=== PATIENT | male | born 1955 | race Caucasian/White ===

== ENCOUNTER → 2018-06-01 15:32 | Outpatient (CLI) | payer OTHER, SELFPAY ==
--- NOTE | 2018-06-01 15:34 | DI.RAD.S_ITS ---
PROCEDURE: XR KNEE RT 3V INDICATIONS: posterior r knee pain TECHNIQUE: 3 views of the knee were acquired. COMPARISON: None. FINDINGS: Bones: No fractures or dislocations. No suspicious bony lesions. There is a slight degree of thinning of the medial compartment joint width, and no effusion or loose body is seen. No trauma found. Soft tissues: No joint effusion. No suspicious soft tissue calcifications. IMPRESSION: Mild degenerative medial compartment osteoarthritis. Dictated by: Raúl Chambers M.D. on 06/01/2018 at 16:03 Approved by: Raúl Chambers M.D. on 06/01/2018 at 16:03
== END ==
PROVIDERS: PCP Student in an Organized Health Care Education/Training Program; Visit Provider Physician Assistant
DX: M25.561 Pain in right knee (principal); M17.11 Unilateral primary osteoarthritis, right knee
CPT/HCPCS: 73562

== ENCOUNTER → 2019-08-17 07:39 | Outpatient (CLI) | payer MEDICARE, SELFPAY ==
--- NOTE | 2019-08-17 07:41 | DI.US.S_ITS ---
PROCEDURE: US ABD AORTA ANEURYSM SCREEN INDICATIONS: AAA SCREEN; HISTORY SMOKING TECHNIQUE: Real time scanning was performed of the aorta and iliac arteries, with image documentation. COMPARISON: None. FINDINGS: Aorta: Proximal aortic diameter measures 1.9 cm. Mid-aorta measures 2.0 cm. Distal aortic diameter is 1.9 cm. Iliac arteries: Right common iliac artery measures 1.1 cm. Left common iliac artery measures 1.1 cm. IMPRESSION: No abdominal aortic aneurysm or iliac artery aneurysm is found. Dictated by: Raúl Chambers M.D. on 08/17/2019 at 8:43 Approved by: Raúl Chambers M.D. on 08/17/2019 at 8:44
== END ==
PROVIDERS: Family Provider Family Medicine; PCP Student in an Organized Health Care Education/Training Program; Visit Provider Student in an Organized Health Care Education/Training Program
DX: Z13.6 Encounter for screening for cardiovascular disorders (principal); Z87.891 Personal history of nicotine dependence
CPT/HCPCS: 76706

== ENCOUNTER → 2020-03-13 15:48 | Outpatient (CLI) | payer MEDICARE, SELFPAY | PROVIDERS: Family Provider Family Medicine; PCP Student in an Organized Health Care Education/Training Program; Visit Provider Nurse Practitioner | DX: J02.9 Acute pharyngitis, unspecified (principal) | CPT/HCPCS: 87070 ==

== ENCOUNTER → 2020-04-06 15:20 | Outpatient (CLI) | payer MEDICARE, SELFPAY | PROVIDERS: Family Provider Family Medicine; PCP Student in an Organized Health Care Education/Training Program; Visit Provider Physician Assistant | DX: J02.9 Acute pharyngitis, unspecified (principal) | CPT/HCPCS: 87070 ==

== ENCOUNTER → 2020-04-09 15:34 | Outpatient (CLI) | payer MEDICARE, SELFPAY ==
--- NOTE | 2020-04-09 15:49 | DI.CT.S_ITS ---
PROCEDURE: CT SOFT TISSUE NECK WO/W CON INDICATIONS: Recurrent pharyngitis. Concern for abscess TECHNIQUE: Before and after the administration of intravenous contrast, 2.0 mm axial sections acquired through the neck and down to the michael. Additional 2.0 mm coronal and sagittal reformats were generated of the contrast enhanced images. For radiation dose reduction, the following was used: automated exposure control. COMPARISON: None. FINDINGS: Image quality: Excellent. Lymph nodes: No enlarged lymph nodes seen throughout the neck. Scattered subcentimeter lymph nodes are present. Vessels: Visualized vasculature appears patent. Neck spaces: There is a heterogeneously enhancing mass predominantly in the left parapharyngeal region. There is a central focus of low attenuation measuring 25 mm AP x 31 mm transverse. Smaller foci are noted in the anterior parapharyngeal region measuring approximately 9 mm AP x 11 mm transverse. There is rightward displacement of the airway with mild narrowing. The vocal cords, false vocal cords, pyriform sinuses, epiglottis, vallecula, and tongue base all appear normal. Extramucosal spaces appear unremarkable. Glands: The parotid and submandibular glands appear normal. Miscellaneous: Visualized lungs appear clear. Superficial soft tissues appear normal. Bones: No suspicious bony lesions. Visualized sinuses and mastoids appear unremarkable. IMPRESSION: 1. Heterogeneously enhancing masslike focus within the left lateral parapharyngeal soft tissues as well as the anterior parapharyngeal soft tissues. Central area of low attenuation is present as described above. Overall appearance is most suggestive of abscess. A message with callback number was left for Dr. Tito Washington on 04/09/2020 at 4:40 p.m, as he was not immediately available for consultation. Dictated by: Jil Hernandez M.D. on 04/09/2020 at 16:32 Approved by: Jil Hernandez M.D. on 04/09/2020 at 16:42
== END ==
PROVIDERS: Family Provider Family Medicine; PCP Student in an Organized Health Care Education/Training Program; Referring Provider Student in an Organized Health Care Education/Training Program; Visit Provider Student in an Organized Health Care Education/Training Program
DX: J02.9 Acute pharyngitis, unspecified (principal); R22.1 Localized swelling, mass and lump, neck
CPT/HCPCS: 70492; Q9967

== ENCOUNTER → 2021-07-22 13:23 | Outpatient (CLI) | payer MEDICARE, SELFPAY ==
[2021-07-22 14:33] LABS: Prostate Specific Antigen 3.32 ng/mL (0.10-4.00)
== END ==
PROVIDERS: Family Provider Family Medicine; PCP Student in an Organized Health Care Education/Training Program; Referring Provider Student in an Organized Health Care Education/Training Program; Visit Provider Student in an Organized Health Care Education/Training Program
DX: R97.20 Elevated prostate specific antigen [PSA] (principal)
CPT/HCPCS: 36415; 84153

== ENCOUNTER → 2022-06-14 09:14 | Outpatient (CLI) | payer MEDICARE, SELFPAY ==
[2022-06-14 11:10] LABS: COVID19 -Nasal RAPID Negative (Negative)
== END ==
PROVIDERS: Family Provider Family Medicine; PCP Student in an Organized Health Care Education/Training Program; Visit Provider Surgery
DX: Z01.812 Encounter for preprocedural laboratory examination (principal); Z20.822 Contact with and (suspected) exposure to COVID-19
CPT/HCPCS: 87635; C9803

== ENCOUNTER 2022-06-15 09:30 | Day surgery (SDC) | payer MEDICARE, SELFPAY ==
[2022-06-15 09:40] VITALS: BMI 31.7
[2022-06-15 09:44] VITALS: BP 138/77; PULSE 89; RESP 16; TEMP 36.4; O2SAT 96
[2022-06-15] MEDS: LACTATED RINGERS 1,000 ML 200 ML IV (09:48)
--- NOTE | 2022-06-15 10:02 | PM.HP.1 ---
History of Present Illness History of Present Illness Date Patient Seen: 06/15/22 Time Patient Seen: 10:02 Chief complaint: Colonoscopy Narrative: The patient presents for colorectal screening. Colonoscopy 5-6 years ago demonstrated a few benign polyps. No personal or family history of colon cancer. On further history denies any recent gastrointestinal symptoms. No nausea, vomiting, abdominal pain, loss of appetite, unexplained weight loss, change in bowel habits, diarrhea, constipation, melena, hematochezia, or bright red blood per rectum. Patient History Medical History Achilles tendinitis of left lower extremity (06/06/17) Age-related nuclear cataract, bilateral Asplenia (05/24/16) Central serous chorioretinopathy, bilateral Chorioretinal scar of right eye Esophageal ring (~1990) Gastroesophageal reflux disease without esophagitis (07/31/15) History of colonic polyps (06/06/17) Lattice degeneration of retina, bilateral Low back pain Pharyngeal abscess Posterior vitreous detachment of right eye Right-sided low back pain without sciatica (07/31/15) Surgical History Anesthesia History of hernia surgery (~2017) History of shoulder surgery Family & Social History Family History Father Lymphoma Mother Cancer Social History: household members spouse Tobacco & Substance use: Smoking Status Former smoker alcohol intake current alcohol intake frequency a few times a month Substance Use Type does not use Meds Home Medications and Allergies Home Medications Medication Instructions Recorded Confirmed Type simvastatin 10 mg tablet 10 mg PO HS #90 tabs 01/11/22 06/15/22 Rx rabeprazole 20 mg tablet,delayed 20 mg PO QDAY #90 tabs 04/14/22 06/15/22 Rx release (AcipHex) tamsulosin 0.4 mg capsule (Flomax) 0.4 mg PO QDAY #90 caps 04/14/22 06/15/22 Rx Allergies Allergy/AdvReac Type Severity Reaction Status Date / Time No Known Drug Allergies Allergy Verified 06/15/22 09:39 Exam Vital Signs (past 8 hours): - 06/15/22 09:44 Temperature 97.6 F Pulse Rate 89 Respiratory Rate 16 Blood Pressure 138/77 Pulse Oximetry 96 Oxygen Delivery Method Room Air Oxygen Delivery Method Room Air Narrative Exam Narrative: General adult male alert oriented no acute distress Assessment & Plan Assessment and plan (1) Personal history of colonic polyps: Status: Acute Assessment & Plan narrative: The patient requires colorectal screening and colonoscopy is recommended. Technical details were discussed. Risks, benefits, alternatives explained. Risks including but not limited to myocardial infarction, aspiration, bleeding, pain, missed lesion, incomplete examination, need for further radiographic studies, colonic perforation, and need for major abdominal surgery were discussed. All questions were answered to their satisfaction, and they are in agreement with this plan. Time Spent With Patient Critical Care time: I spent a total of [] minutes of critical care time on this patient's care today; this time is exclusive of procedural time.
--- NOTE | 2022-06-15 10:40 | PM.OP.COLON ---
Operative Date/Time/Diagnoses Date of procedure: 06/15/22 Time of procedure: 10:40 Pre-op diagnosis: Personal history of colonic polyps Post-op diagnosis: same Procedure & Clinicians Study performed: Colonoscopy Same procedure as scheduled: Yes Indications: Personal history of colonic polyps Surgeon: Thai Nicole Procedure Notes Procedure in detail: The history and physical was performed/updated and the patient is ASA class is 2. The procedure was discussed in detail with the patient. Potential risks complications including infection, bleeding, missed diagnosis, perforation, need for surgery, and were explained. Their questions were answered and informed consent was obtained. Patient was brought to the procedure room and placed standard monitoring equipment. The patient's vital signs were monitored continuously throughout the entire procedure. Prior to starting time-out was performed. The patient was placed in the left lateral recumbent position. Procedural sedation was administered by anesthesia. Examination began with a thorough inspection of the perianal area there was no evidence of fissures, fistulae, external hemorrhoids or cutaneous malignancy. The colonoscopy scope was then placed into the anal canal and was advanced to the cecum, which was identified by the ileocecal valve, the appendiceal orifice and the confluence of the taenia. The scope was then slowly withdrawn examining colon thoroughly in all directions, irrigating it of any residual stool. FINDINGS 1. No masses or polyps 2. Sigmoid diverticulosis moderate The patient tolerated the procedure well. They will be discharged once criteria are met. The prep was of good/excellent quality. The withdrawl time was 6 minutes. Specimen(s): none sent Impression: Normal colonoscopy Post-procedure Recommendations: Colonoscopy in 10 years and High fiber diet Disposition: same day surgery
[2022-06-15 11:06] VITALS: BP 121/72; PULSE 74; RESP 16; TEMP 36.6; O2SAT 96
[2022-06-15 11:11] VITALS: BP 103/68; PULSE 74; RESP 16; O2SAT 96
[2022-06-15 11:17] VITALS: BP 121/65; PULSE 68; RESP 18; TEMP 36.7; O2SAT 97
[2022-06-15 11:23] VITALS: BP 121/80; PULSE 76; RESP 16; TEMP 36.7; O2SAT 95
[2022-06-15 12:37] VITALS: BP 112/64; PULSE 69; RESP 12; TEMP 36.2; O2SAT 99
== END 2022-06-15 11:38 | disposition home or self-care (01) ==
PROVIDERS: Family Provider Family Medicine; PCP Student in an Organized Health Care Education/Training Program; Referring Provider Surgery; Visit Provider Surgery
PROC: 0DJD8ZZ Inspection of Lower Intestinal Tract, Via Natural or Artificial Opening Endoscopic (ICD-10-PCS; CPT 45378; principal; 2022-06-15 10:30)
DX: Z12.11 Encounter for screening for malignant neoplasm of colon (principal); Z86.010 Personal history of colon polyps; K57.30 Diverticulosis of large intestine without perforation or abscess without bleeding
CPT/HCPCS: G0105; J2704

== ENCOUNTER → 2022-07-29 07:02 | Outpatient (CLI) | payer MEDICARE, SELFPAY ==
[2022-07-29 09:19] LABS: Prostate Specific Antigen Scrn 2.83 ng/mL (0.1-4.0)
== END ==
PROVIDERS: Family Provider Family Medicine; PCP Student in an Organized Health Care Education/Training Program; Referring Provider Student in an Organized Health Care Education/Training Program; Visit Provider Student in an Organized Health Care Education/Training Program
DX: Z12.5 Encounter for screening for malignant neoplasm of prostate (principal)
CPT/HCPCS: 36415; G0103

== ENCOUNTER → 2023-02-23 07:20 | Outpatient (CLI) | payer MEDICARE, SELFPAY ==
[2023-02-23 08:16] LABS: Add Manual Diff / Slide Review NO; Basophils Absolute Auto 0 /uL (0-100); Basophils Percent Auto 0.6 % (0-2); Eosinophils Absolute Auto 100 /uL (0-450); Eosinophils Percent Auto 2.4 % (2-4); Hematocrit 43.6 % (41-53); Hemoglobin 14.7 g/dL (13.5-17.5); Lymphocytes Absolute Auto 1300 /uL (1100-4500); Mean Corpuscular HGB Conc 33.7 % (30-36); Mean Corpuscular Hemoglobin 30.9 PG (26-34); Mean Corpuscular Volume 91.8 fL (80-100); Monocytes Absolute Auto 500 /uL (0-900); Monocytes Percent Auto 8.7 % (3-14); Neutrophils Absolute Auto 3300 /uL (1500-7000); Neutrophils Percent Auto 63.3 % (50-75); Platelet Count 293 X10^3/uL (150-400); Red Blood Cell Count 4.76 X10^6/uL (4.5-5.9); Red Cell Distribution Width 13.4 % (11.6-14.8); White Blood Cell Count 5.2 X10^3/uL (4.5-11.0)
[2023-02-23 08:42] LABS: Alanine Aminotransferase 41 IU/L (<50); Albumin Globulin Ratio 1.4 (1.0-2.8); Alkaline Phosphatase 48 U/L (38-126); Aspartate Aminotransferase 32 IU/L (17-59); BUN Creatinine Ratio 21.7 (6-22); Bilirubin Total 1.1 mg/dL (0.2-1.3); Blood Urea Nitrogen 23 mg/dL (9-20); Calcium 9.2 mg/dL (8.4-10.2); Carbon Dioxide 26 mmol/L (22-32); Chloride 108 mmol/L (98-107); Cholesterol 173 mg/dL (140-199); Estimated Glomerular Filt Rate > 60 mL/min (>60); Globulin 2.9 g/dL (1.7-4.1); Glucose 99 mg/dL (80-110); HDL Cholesterol 41 mg/dL (40-60); HEMOLYSIS < 15 (0-50); LDL Cholesterol Calculated 111 mg/dL (<100); Potassium 4.4 mmol/L (3.4-5.1); Sodium 141 mmol/L (137-145); Total Protein 6.9 g/dL (6.3-8.2); Triglycerides 104 mg/dL (35-150)
[2023-02-23 09:04] LABS: Prostate Specific Antigen Scrn 3.45 ng/mL (0.1-4.0)
[2023-02-28 20:36] LABS: H.pylori IgG 0.32 (0.00-0.79)
== END ==
PROVIDERS: Family Provider Family Medicine; PCP Family Medicine; Referring Provider Family Medicine; Visit Provider Family Medicine
DX: Z00.00 Encounter for general adult medical examination without abnormal findings (principal); E78.00 Pure hypercholesterolemia, unspecified; Z12.5 Encounter for screening for malignant neoplasm of prostate; K21.9 Gastro-esophageal reflux disease without esophagitis
CPT/HCPCS: 36415; 80053; 80061; 85025; 86677; G0103

== ENCOUNTER → 2023-08-23 09:00 | Outpatient (CLI) | payer MEDICARE, SELFPAY ==
[2023-08-23 11:19] LABS: Alanine Aminotransferase 47 IU/L (<50); Albumin 4.2 g/dL (3.5-5.0); Albumin Globulin Ratio 1.4 (1.0-2.8); Alkaline Phosphatase 47 U/L (38-126); Aspartate Aminotransferase 32 IU/L (17-59); BUN Creatinine Ratio 20.4 (6-22); Bilirubin Total 1.3 mg/dL (0.2-1.3); Blood Urea Nitrogen 21 mg/dL (9-20); Carbon Dioxide 29 mmol/L (22-32); Chloride 106 mmol/L (98-107); Estimated Glomerular Filt Rate > 60 mL/min (>60); Glucose 92 mg/dL (80-110); HEMOLYSIS < 15 (0-50); Potassium 4.9 mmol/L (3.4-5.1); Sodium 140 mmol/L (137-145); Total Protein 7.2 g/dL (6.3-8.2)
[2023-08-23 11:47] LABS: Prostate Specific Antigen Scrn 8.82 ng/mL (0.1-4.0)
== END ==
LOC: LAB 09:01
PROVIDERS: Family Provider Family Medicine; PCP Family Medicine; Referring Provider Family Medicine; Visit Provider Family Medicine
DX: Z12.5 Encounter for screening for malignant neoplasm of prostate (principal); N40.1 Benign prostatic hyperplasia with lower urinary tract symptoms; K21.9 Gastro-esophageal reflux disease without esophagitis
CPT/HCPCS: 36415; 80053; G0103

== ENCOUNTER → 2023-08-30 13:21 | Outpatient (CLI) | payer MEDICARE, SELFPAY | PROVIDERS: Family Provider Family Medicine; PCP Family Medicine; Referring Provider Family Medicine; Visit Provider Family Medicine | DX: Z12.5 Encounter for screening for malignant neoplasm of prostate (principal); N40.1 Benign prostatic hyperplasia with lower urinary tract symptoms | CPT/HCPCS: 36415; 84153; G0103 ==

== ENCOUNTER → 2023-09-08 15:24 | Outpatient (CLI) | payer MEDICARE, SELFPAY ==
[2023-09-12 14:16] LABS: Interpretation Negative (Negative)
== END ==
PROVIDERS: Family Provider Family Medicine; PCP Family Medicine; Referring Provider Family Medicine; Visit Provider Family Medicine
DX: E66.9 Obesity, unspecified (principal); R10.13 Epigastric pain
CPT/HCPCS: 83013

== ENCOUNTER → 2024-02-21 14:35 | Outpatient (CLI) | payer MEDICARE, SELFPAY ==
[2024-02-21 16:11] LABS: Prostate Specific Antigen Scrn 3.23 ng/mL (0.1-4.0)
== END ==
PROVIDERS: Family Provider Family Medicine; PCP Family Medicine; Referring Provider Family Medicine; Visit Provider Family Medicine
DX: Z12.5 Encounter for screening for malignant neoplasm of prostate (principal); R97.20 Elevated prostate specific antigen [PSA]
CPT/HCPCS: 36415; G0103

== ENCOUNTER → 2024-07-27 06:44 | Outpatient (CLI) | payer MEDICARE, SELFPAY ==
[2024-07-27 08:16] LABS: Add Manual Diff / Slide Review NO; Basophils Absolute Auto 0 /uL (0-100); Basophils Percent Auto 0.6 % (0-2); Eosinophils Absolute Auto 200 /uL (0-450); Eosinophils Percent Auto 3.1 % (2-4); Hematocrit 43.8 % (41-53); Hemoglobin 15.2 g/dL (13.5-17.5); Lymphocytes Absolute Auto 1400 /uL (1100-4500); Lymphocytes Percent Auto 27.2 % (25-40); Mean Corpuscular HGB Conc 34.6 % (30-36); Mean Corpuscular Hemoglobin 31.8 PG (26-34); Monocytes Absolute Auto 400 /uL (0-900); Monocytes Percent Auto 8.4 % (3-14); Neutrophils Absolute Auto 3200 /uL (1500-7000); Neutrophils Percent Auto 60.7 % (50-75); Platelet Count 300 X10^3/uL (150-400); Red Blood Cell Count 4.76 X10^6/uL (4.5-5.9); Red Cell Distribution Width 12.8 % (11.6-14.8); White Blood Cell Count 5.3 X10^3/uL (4.5-11.0)
[2024-07-27 08:54] LABS: Alanine Aminotransferase 50 IU/L (<50); Albumin 4.3 g/dL (3.5-5.0); Albumin Globulin Ratio 1.7 (1.0-2.8); Alkaline Phosphatase 50 U/L (38-126); Aspartate Aminotransferase 35 IU/L (17-59); BUN Creatinine Ratio 23.7 (6-22); Bilirubin Total 1.1 mg/dL (0.2-1.3); Blood Urea Nitrogen 28 mg/dL (9-20); Calcium 9.5 mg/dL (8.4-10.2); Carbon Dioxide 25 mmol/L (22-32); Chloride 108 mmol/L (98-107); Cholesterol 186 mg/dL (140-199); Estimated Glomerular Filt Rate > 60 mL/min (>60); Globulin 2.5 g/dL (1.7-4.1); Glucose 94 mg/dL (80-110); HDL Cholesterol 42 mg/dL (40-60); HEMOLYSIS < 15 (0-50); LDL Cholesterol Calculated 127 mg/dL (<100); Potassium 4.7 mmol/L (3.4-5.1); Sodium 139 mmol/L (137-145); Total Protein 6.8 g/dL (6.3-8.2); Triglycerides 87 mg/dL (35-150)
[2024-07-27 09:19] LABS: Prostate Specific Antigen Scrn 3.23 ng/mL (0.1-4.0)
== END ==
PROVIDERS: Family Provider Family Medicine; PCP Family Medicine; Referring Provider Family Medicine; Visit Provider Family Medicine
DX: E78.00 Pure hypercholesterolemia, unspecified (principal); Z12.5 Encounter for screening for malignant neoplasm of prostate; N40.1 Benign prostatic hyperplasia with lower urinary tract symptoms; K21.9 Gastro-esophageal reflux disease without esophagitis
CPT/HCPCS: 36415; 80053; 80061; 85025; G0103

== ENCOUNTER → 2025-02-21 06:48 | Outpatient (CLI) | payer MEDICARE, SELFPAY ==
[2025-02-21 07:32] LABS: Add Manual Diff / Slide Review NO; Hematocrit 42.6 % (41-53); Hemoglobin 14.9 g/dL (13.5-17.5); Lymphocytes Absolute Auto 1400 /uL (1100-4500); Mean Corpuscular HGB Conc 34.9 % (30-36); Mean Corpuscular Hemoglobin 31.9 PG (26-34); Mean Corpuscular Volume 91.6 fL (80-100); Platelet Count 250 X10^3/uL (150-400)
[2025-02-21 08:06] LABS: Alanine Aminotransferase 45 IU/L (<50); Albumin 4.3 g/dL (3.5-5.0); Albumin Globulin Ratio 1.7 (1.0-2.8); Alkaline Phosphatase 50 U/L (38-126); Blood Urea Nitrogen 27 mg/dL (9-20); Calcium 9.4 mg/dL (8.4-10.2); Carbon Dioxide 25 mmol/L (22-32); Chloride 109 mmol/L (98-107); Cholesterol 177 mg/dL (140-199); Estimated Glomerular Filt Rate > 60 mL/min (>60); Globulin 2.6 g/dL (1.7-4.1); Glucose 98 mg/dL (70-99); HDL Cholesterol 41 mg/dL (40-60); HEMOLYSIS < 15 (0-50); Potassium 4.7 mmol/L (3.4-5.1); Sodium 141 mmol/L (137-145); Total Protein 6.9 g/dL (6.3-8.2); Triglycerides 99 mg/dL (35-150)
== END ==
PROVIDERS: Family Provider Family Medicine; PCP Family Medicine; Referring Provider Family Medicine; Visit Provider Family Medicine
DX: E78.00 Pure hypercholesterolemia, unspecified (principal); Z12.5 Encounter for screening for malignant neoplasm of prostate; N40.1 Benign prostatic hyperplasia with lower urinary tract symptoms
CPT/HCPCS: 36415; 80053; 80061; 85025; G0103